=== PATIENT | male | born 1945 | race Caucasian/White ===

== ENCOUNTER 2017-04-11 07:37 | Emergency (ER) | payer SELFPAY ==
--- NOTE | 2017-04-11 08:43 | RAD ---
INDICATION: Fall/trauma. COMPARISON: No relevant prior exams available on the [facility] PACS for comparison. TECHNIQUE: Multidetector CT images foramen magnum to lung apices without contrast. Multiplanar reformation. REPORT: Normal vertebral alignment accounting for exam positioning without spondylolisthesis or subluxation at any level. Negative for cervical vertebral body or posterior element fracture. Negative for paravertebral hematoma. Diffuse degenerative spondylosis and facet joint osteoarthritis. Disc space narrowing is moderately severe at C4-C5 and severe at C5-C6 and C6-C7. At C3-C4 dorsal disc complex results in mild impression on the ventral margin of the thecal sac. At C4-C5 dorsal disc osteophyte complex results in moderate impression on the ventral margin of the thecal sac and uncinate process spurring and facet joint osteoarthritis results in moderately severe RIGHT and moderate LEFT foraminal stenosis. At C5-C6 dorsal disc osteophyte complex results in mild impression on the ventral margin of the thecal sac and uncinate process spurring and facet joint osteoarthritis results in severe bilateral foraminal stenosis. At C6-C7 large dorsal osteophyte complex results in severe acquired central canal stenosis and uncinate process spurring and facet joint osteoarthritis results in severe bilateral foraminal stenosis. IMPRESSION: 1. No evidence for traumatic cervical spine injury. 2. Advanced degenerative spondylosis and facet joint osteoarthritis with associated multilevel acquired spinal stenosis as described.
--- NOTE | 2017-04-11 08:54 | RAD ---
INDICATION: Head injury. COMPARISON: There are no prior studies available for comparison. TECHNIQUE: Contiguous axial sections of the brain were obtained from the skull base to the vertex without contrast. FINDINGS: The ventricles, cisterns and sulci are within normal limits. No significant focal abnormality or mass effect is seen. There is no evidence for hemorrhage. There is focal soft tissue swelling and a small hematoma in the scalp posterior to the occipital region centered just to the left of the midline measuring 1.9 x 0.5 cm in size. No fracture is seen. The paranasal sinuses and mastoid air cells appear clear. IMPRESSION: NO EVIDENCE FOR ACUTE INTRACRANIAL ABNORMALITY.
[2017-04-11 09:45] VITALS: BP 140/99
--- NOTE | 2017-04-11 10:40 | ED ---
Livia Vieira Auryana, scribed for Mikey Moore MD on 04/11/17 at 0830 . Head Injury - HPI Summary HPI Summary: 71 year old male CASSI s/p fall off trailer. Patient initially was unable to report the incident to EMS but on ED arrival and physician visit patient is able to recall the event. 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 He reports that the truck was not moving at the time. On ED arrival, c/o mild headache, right elbow pain, and neck pain. PMHx is significant for DM. - History Of Current Complaint Chief Complaint: EDGeneral Stated Complaint: FALL Time Seen by Provider: 04/11/17 07:46 Hx Obtained From: Patient Mechanism Of Injury: Fall From A Standing Position Onset/Duration: Started Hours Ago - [employer], Still Present Onset of Pain: Immediate Severity Currently: Mild Severity Initially: Mild Pain Intensity: 2 Pain Scale Used: 0-10 Numeric Location of Head Injury: Other: - posterior head Location: Discrete At: - posterior head Associated Signs And Symptoms: Confusion - per EMS - none on ED physician visit , Neck Pain, Bruising, Headache, Other: - right elbow pain - Allergies/Home Medications Allergies/Adverse Reactions: Allergies Allergy/AdvReac Type Severity Reaction Status Date / Time No Known Allergies Allergy Verified 04/11/17 08:29 PMH/Surg Hx/FS Hx/Imm Hx Infectious Disease History: No Infectious Disease History: Denies: Traveled Outside the [place] in Last 30 Days - Family History Known Family History: Positive: Other - cancer - Social History Occupation: Employed Full-time Lives: Alone Alcohol Use: Rare Substance Use Type: Reports: None Smoking Status (MU): Heavy Every Day Tobacco Smoker Review of Systems Constitutional: Negative Negative: Fever Eyes: Negative ENT: Negative Cardiovascular: Negative Respiratory: Negative Gastrointestinal: Negative Genitourinary: Negative Positive: Arthralgia - neck pain, right elbow pain Skin: Negative Positive: Headache Psychological: Normal All Other Systems Reviewed And Are Negative: Yes Physical Exam Triage Information Reviewed: Yes Vital Signs On Initial Exam: Initial Vitals Temp Pulse Resp BP Pulse Ox 97.7 F 83 20 158/71 93 04/11/17 07:43 04/11/17 07:43 04/11/17 07:43 04/11/17 07:43 04/11/17 07:43 Vital Signs Reviewed: Yes Appearance: Positive: Well-Appearing, No Pain Distress, Well-Nourished Skin: Positive: Warm, Skin Color Reflects Adequate Perfusion, Dry, Other - posterior crown contusion with 5/6 cm abrasion; small abrasion to the right elbow Head/Face: Positive: Normal Head/Face Inspection Eyes: Positive: Normal ENT: Positive: Normal ENT inspection Neck: Positive: Supple, Tenderness @ - midline Respiratory/Lung Sounds: Positive: Clear to Auscultation, Breath Sounds Present Cardiovascular: Positive: RRR, Pulses are Symmetrical in both Upper and Lower Extremities Abdomen Description: Positive: Nontender, Soft Bowel Sounds: Positive: Present Musculoskeletal: Positive: Normal, Strength/ROM Intact Neurological: Positive: Normal, Sensory/Motor Intact Psychiatric: Positive: Normal, Affect/Mood Appropriate - [place] Coma Scale Coma Scale Total: 15 Diagnostics - Vital Signs Vital Signs Temp Pulse Resp BP Pulse Ox 04/11/17 07:43 97.7 F 83 20 158/71 93 - Laboratory Lab Statement: Any lab studies that have been ordered have been reviewed, and results considered in the medical decision making process. - CT CERVICAL CT CT Interpretation: Positive (See Comments) CT Interpretation Completed By: Radiologist BRAIN CT Interpretation: No Acute Changes CT Interpretation Completed By: Radiologist Re-Evaluation - Re-Evaluation First Eval Re-Evaluation Time: 09:15 Change: Improved - SLIGHT IMPROVEMENT Head Injury Course/Dx Course Of Treatment: Mr. Rasmussen regained his memory of what happened while here in the ED. He has mild neck pain and pain at the site of his head injury but no EVANS. He has a bit of pain in his right elbow also. He remembers getting up on the truck bed to release a strap and falling. Ct of head and neck were negative and he refused an x-ray of his elbow. He minimizes hius symptoms here although he does admit he's getting a little stiff. He wants to go back to work and, although i would prefer he take it easy, I will let him go back. - Diagnoses Provider Diagnoses: Head injury, Abrasion head, Elbow contusion, Cervical strain Discharge - Discharge Plan Condition: Stable Disposition: HOME Patient Education Materials: Cervical Strain (ED), Head Injury (ED), Abrasion ( ED), Contusion in Adults (ED) Forms: *Gen. Provider Communication, *Work Release Referrals: Non Staff,Doctor [Primary Care Provider] - 3 Days The documentation as recorded by the Livia piña Auryana accurately reflects the service I personally performed and the decisions made by me, Mikey Moore MD.
== END 2017-04-11 09:44 | disposition home or self-care (01) ==
LOC: ED 07:37
DX: S09.90XA Unspecified injury of head, initial encounter (principal); S00.91XA Abrasion of unspecified part of head, initial encounter; S16.1XXA Strain of muscle, fascia and tendon at neck level, initial encounter; F17.200 Nicotine dependence, unspecified, uncomplicated; E11.9 Type 2 diabetes mellitus without complications; S50.01XA Contusion of right elbow, initial encounter; W17.89XA Other fall from one level to another, initial encounter; Y92.9 Unspecified place or not applicable
CPT/HCPCS: 70450; 72125; 99282